=== PATIENT | female | born 1955 | race African-American/Black ===

== ENCOUNTER 2019-02-07 03:08 | Emergency (ER) | payer MEDICAID ==
[~2019-02-07] VITALS: Ht 134.6 cm; Wt 73.0 kg
[2019-02-07] MEDS ORDERED: DEXTROSE 50% WATER 50ML SYRINGE IV ONE (03:19)
[2019-02-07] MEDS: DEXTROSE 50% WATER 50ML SYRINGE IV ONE (03:45)
[2019-02-07] MEDS: DEXTROSE 50% WATER 50ML SYRINGE IV PRN (03:48)
[2019-02-07 08:39] VITALS: BP 132/68
== END 2019-02-07 08:41 | disposition home or self-care (01) ==
LOC: ER 03:08
DX: T38.3X1A Poisoning by insulin and oral hypoglycemic [antidiabetic] drugs, accidental (unintentional), initial encounter (principal); Y92.89 Other specified places as the place of occurrence of the external cause; I95.9 Hypotension, unspecified; I10 Essential (primary) hypertension; Z88.0 Allergy status to penicillin
CPT/HCPCS: 82962; 96374; 99283